=== PATIENT | male | born 1990 | race Two or more races ===

== ENCOUNTER 2016-06-09 11:13 | Emergency (ER) | payer OTHER ==
[~2016-06-09] VITALS: Ht 170.2 cm; Wt 85.0 kg
[2016-06-09 11:14] VITALS: BP 150/80
[2016-06-09] MEDS ORDERED: BACITRACIN ZINC OINT UDPKT TOP ONE (11:45)
== END 2016-06-09 12:54 | disposition home or self-care (01) ==
LOC: ER 12:03
DX: M25.561 Pain in right knee (principal); S80.212A Abrasion, left knee, initial encounter; S50.312A Abrasion of left elbow, initial encounter; F32.9 Major depressive disorder, single episode, unspecified; M25.512 Pain in left shoulder; Z88.8 Allergy status to other drugs, medicaments and biological substances; W22.8XXA Striking against or struck by other objects, initial encounter; Y93.55 Activity, bike riding; Y99.8 Other external cause status; Y92.830 Public park as the place of occurrence of the external cause
CPT/HCPCS: 99283